=== PATIENT | male | born 2000 | race Caucasian/White ===

== ENCOUNTER → 2021-02-13 | Outpatient (CLI) | payer MEDICAID ==
[~2021-02-13] MED LIST: VIBRAMYCIN HYC100 MG PO
[2021-02-13 11:31] LABS: BASO # 0.06 (0.02-0.10); EOS # 0.17 (0.04-0.40); EOS % 1.9 % (0.0-4.0); HEMATOCRIT 44.5 % (36.0-47.0); HEMOGLOBIN 14.8 g/dL (12.5-16.1); LYMPH# 2.22 (1.50-4.00); MEAN CELL VOLUME 86 fl (78-95); MEAN CORPUSCULAR HEMOGLOBIN 29 pg (26-32); MEAN CORPUSCULAR HGB CONC 33 g/dL (33-37); NEU # 5.82 (1.40-6.50); PLATELET COUNT 254 K/mm3 (130-400); RED BLOOD COUNT 5.18 M/mm3 (4.20-5.60); RED CELL DISTRIBUTION WIDTH 11.9 % (11.5-14.5); WHITE BLOOD COUNT 8.9 K/mm3 (4.8-10.8)
[2021-02-13 11:37] LABS: ALBUMIN 4.1 g/dL (3.5-5.0)
[2021-02-13 11:38] LABS: POTASSIUM 4.3 mmol/L (3.5-5.1)
[2021-02-13 11:39] LABS: CALCIUM 9.3 mg/dL (8.3-10.5)
[2021-02-13 11:40] LABS: TOTAL PROTEIN 7.5 g/dL (6.4-8.3)
[2021-02-13 11:42] LABS: TOTAL BILIRUBIN 0.3 mg/dL (0.2-1.2)
== END ==
LOC: RAD 10:33
PROVIDERS: Nurse Practitioner
DX: R59.0 Localized enlarged lymph nodes (principal); K40.90 Unilateral inguinal hernia, without obstruction or gangrene, not specified as recurrent

== ENCOUNTER → 2021-02-19 | Outpatient (CLI) | payer MEDICAID ==
[2021-02-19 09:20] VITALS: BP 146/64
[2021-02-19 09:26] LABS: URINE WBC 0 /hpf (0-3)
[2021-02-19 09:29] LABS: URINE APPEARANCE CLEAR; URINE BILIRUBIN NEGATIVE (NEGATIVE); URINE BLOOD NEGATIVE (NEGATIVE); URINE COLOR YELLOW; URINE GLUCOSE NEGATIVE (NEGATIVE); URINE KETONE NEGATIVE (NEGATIVE); URINE LEUKOCYTE ESTERASE NEGATIVE (NEGATIVE); URINE NITRATE NEGATIVE (NEGATIVE); URINE PROTEIN(semi-quant) NEGATIVE (NEGATIVE); URINE UROBILINOGEN NORMAL (NORMAL)
[2021-02-19 09:51] LABS: POTASSIUM 4.3 mmol/L (3.5-5.1)
[2021-02-19 09:52] LABS: CALCIUM 9.4 mg/dL (8.3-10.5)
[2021-02-19 09:58] LABS: MAGNESIUM 1.98 mg/dL (1.70-2.20)
[2021-02-19 10:28] VITALS: BP 135/70
== END ==
LOC: AMSURD 08:54
PROVIDERS: Family Medicine
DX: E86.0 Dehydration (principal)
CPT/HCPCS: J7030

== ENCOUNTER → 2021-04-28 | Outpatient (CLI) | payer BC, MEDICAID | LOC: LAB 12:45 | DX: Z20.822 Contact with and (suspected) exposure to COVID-19 (principal) ==